=== PATIENT | male | born 1995 | race Asian ===

== ENCOUNTER 2019-05-07 14:19 | Emergency (ER) | payer SELFPAY ==
[2019-05-07 14:27] VITALS: BP 114/75; PULSE 120; RESP 18; TEMP 37; O2SAT 99; BMI 28.8
[2019-05-07 15:05] LABS: Influenza A - CEPHEID Flu A NEGATIVE (NEGATIVE); Influenza B - CEPHEID Flu B POSITIVE (NEGATIVE)
--- NOTE | 2019-05-07 15:45 | ED_ITS ---
HPI - Abdominal Pain <TONY Madrigal - Last Filed: 05/07/19 21:08> General Chief Complaint: Dizziness Stated Complaint: feeling icky last three days bloody stool today Time Seen by Provider: 05/07/19 14:51 Source: patient Mode of arrival: Ambulatory Limitations: no limitations History of Present Illness HPI narrative: The patient is a 24-year-old male nonsmoker who denies pertinent medical history presents with a chief complaint of fevers muscle aches and chills for the past 3-4 days. He is concerned that he might have the flu. He also complains of left-sided abdominal pain last night and bright red blood per rectum. He states that that happened this morning. He denies any sore throat or ear pain. He denies any nausea or vomiting. Related Data Allergies Allergy/AdvReac Type Severity Reaction Status Date / Time No Known Drug Allergies Allergy Verified 05/07/19 14:27 Review of Systems <LORENZO Madrigal - Last Filed: 05/07/19 21:08> Review of Systems Narrative: GENERAL: See HPI HEENT: Denies sinus pain, ear pain, sore throat, difficulty swallowing, dizziness. RESPIRATORY: Denies dyspnea, cough, wheezing, hemoptysis, sputum. CARDIOVASCULAR: Denies chest pain, palpitations, orthopnea, edema, GASTROINTESTINAL: See HPI : Denies dysuria, frequency, incontinence, hematuria, urinary retention. MUSCULOSKELETAL: denies weakness, joint pain, or bony pain SKIN: Denies rash, skin lesions, or other NEUROLOGIC: Denies weakness, headache, numbness, change in speech, confusion, se izures, incoordination. PSYCHIATRIC: No concerning psychosocial issues. 12 point review of systems is negative except for those stated above Patient History <TONY Madrigal - Last Filed: 05/07/19 21:08> Social History Smoking Status: Never smoker Smoking Status: Never smoker Substance Use Type: does not use Exam <TONY Madrigal - Last Filed: 05/07/19 21:08> Narrative Exam Narrative: GENERAL: This is a well-nourished, well-developed patient, in no acute distress HEAD: Atraumatic. Normocephalic. No temporal or scalp tenderness. EYES: Pupils equal round and reactive. Extraocular motions intact. No scleral icterus. No injection or drainage. ENT: Nose without bleeding, purulent drainage or septal hematoma. Throat without erythema, tonsillar hypertrophy or exudate. Uvula midline. Airway patent. Bilateral TMs pearly sneed. NECK: Trachea midline. No JVD or lymphadenopathy. Supple, nontender, no meningeal signs. CARDIOVASCULAR: Regular rate and rhythm without murmurs, gallops, or rubs. RESPIRATORY: Clear to auscultation. Breath sounds equal bilaterally. No wheezes, rales, or rhonchi. No cough. No increased respiratory effort. No accessory muscle use. GASTROINTESTINAL: Abdomen soft, non-tender, nondistended. No hepato- splenomegaly, or palpable masses. No guarding. rectal: Done with Ernesto CLEVELAND at bedside. Heme-positive stool. Possible hemorrhoid. No gross blood. EXTREMITIES: No clubbing, cyanosis, or edema. No joint tenderness, effusion, or edema noted. BACK: Nontender without deformity or crepitance. No flank tenderness. NEURO: AOx3. SKIN: No rash or erythema on visible skin Initial Vital Signs Initial Vital Signs: Vital Signs Temperature 98.6 F 05/07/19 14:27 Pulse Rate 120 H 05/07/19 14:27 Respiratory Rate 18 05/07/19 14:27 Blood Pressure 114/75 05/07/19 14:27 Pulse Oximetry 99 05/07/19 14:27 <Corinne Farnsworth MD - Last Filed: 05/08/19 17:45> Initial Vital Signs Initial Vital Signs: Vital Signs Temperature 98.6 F 05/07/19 14:27 Pulse Rate 120 H 05/07/19 14:27 Respiratory Rate 18 05/07/19 14:27 Blood Pressure 114/75 05/07/19 14:27 Pulse Oximetry 99 05/07/19 14:27 Procedures <TONY Madrigal - Last Filed: 05/07/19 21:08> Stool Hemoccult Procedural Steps Taken: stool placed in appropriate test area, developer placed on stool and control areas and controls appropriately positive and negative Hemoccult result: positive Additional Comments: Ernesto CLEVELAND at bedside Course <TONY Madrigal - Last Filed: 05/07/19 21:08> Orders Ordered: Discontinued Medications Sodium Chloride (Normal Saline 0.9%) 500 mls @ 1,000 mls/hr IV BOLUS ONE Stop: 05/07/19 15:38 Last Infusion: 05/07/19 16:30 Dose: 0 mls/hr Documented by: Admin: 05/07/19 16:00 Dose: 1,000 mls/hr Documented by: ANTWON Sodium Chloride (Normal Saline 0.9%) 1,000 mls @ 1,000 mls/hr IV BOLUS ONE Stop: 05/07/19 17:55 Last Infusion: 05/07/19 18:15 Dose: 0 mls/hr Documented by: Admin: 05/07/19 17:15 Dose: 1,000 mls/hr Documented by: ANTWON Vital Signs Vital signs: Vital Signs - 8 hr 05/07/19 14:27 05/07/19 16:32 05/07/19 17:33 Temperature 98.6 F Pulse Rate 120 H 109 H 95 H Respiratory Rate 18 18 18 Blood Pressure 114/75 Blood Pressure [Right Arm] 109/79 122/76 Pulse Oximetry 99 100 100 05/07/19 18:00 Temperature Pulse Rate 99 H Respiratory Rate 18 Blood Pressure Blood Pressure [Right Arm] 129/69 Pulse Oximetry 99 <Corinne Farnsworth MD - Last Filed: 05/08/19 17:45> Orders Ordered: Discontinued Medications Sodium Chloride (Normal Saline 0.9%) 500 mls @ 1,000 mls/hr IV BOLUS ONE Stop: 05/07/19 15:38 Last Infusion: 05/07/19 16:30 Dose: 0 mls/hr Documented by: Admin: 05/07/19 16:00 Dose: 1,000 mls/hr Documented by: ANTWON Sodium Chloride (Normal Saline 0.9%) 1,000 mls @ 1,000 mls/hr IV BOLUS ONE Stop: 05/07/19 17:55 Last Infusion: 05/07/19 18:15 Dose: 0 mls/hr Documented by: Admin: 05/07/19 17:15 Dose: 1,000 mls/hr Documented by: ANTWON Vital Signs Vital signs: Vital Signs - 8 hr 05/07/19 14:27 05/07/19 16:32 05/07/19 17:33 Temperature 98.6 F Pulse Rate 120 H 109 H 95 H Respiratory Rate 18 18 18 Blood Pressure 114/75 Blood Pressure [Right Arm] 109/79 122/76 Pulse Oximetry 99 100 100 05/07/19 18:00 Temperature Pulse Rate 99 H Respiratory Rate 18 Blood Pressure Blood Pressure [Right Arm] 129/69 Pulse Oximetry 99 MDM - Abdominal Pain <Christa Tapia, [employer] DES[employer]ER-BC - Last Filed: 05/07/19 21:08> Lab Data Result diagrams: 05/07/19 15:40 05/07/19 15:40 Labs: Lab Results 05/07/19 05/07/19 05/07/19 Range/Units 14:35 15:40 15:40 WBC (4.5-11.0) X10^3/uL RBC (4.5-5.9) X10^6/uL Hgb (13.5-17.5) g/dL Hct (41-53) % MCV (80-100) fL MCH (26-34) PG MCHC (30-36) % RDW (11.6-14.8) % Plt Count (150-400) X10^3/uL Neut % (Auto) (50-75) % Lymph % (Auto) (25-40) % [place] % (Auto) (3-14) % Eos % (Auto) (2-4) % Baso % (Auto) (0-2) % Neut # (Auto) (8420-2221) /uL Lymph # (Auto) (2593-8514) /uL [place] # (Auto) (0-900) /uL Eos # (Auto) (0-450) /uL Baso # (Auto) (0-100) /uL RBC Morphology Target Cells Sodium (137-145) mmol/L Potassium (3.4-5.1) mmol/L Chloride (98-107) mmol/L Carbon Dioxide (22-32) mmol/L BUN (9-20) mg/dL Creatinine (0.66-1.25) mg/dL Estimated GFR (>60) mL/min BUN/Creatinine Ratio (6-22) Glucose (70-100) mg/dL Calcium (8.4-10.2) mg/dL Total Bilirubin (0.2-1.3) mg/dL AST (17-59) IU/L ALT (<50) IU/L Alkaline Phosphatase (38-126) U/L Total Protein (6.3-8.2) g/dL Albumin (3.5-5.0) g/dL Globulin (1.7-4.1) g/dL Albumin/Globulin Ratio (1.0-2.8) Amylase Cancelled Lipase (23-300) U/L Influenza A (RT-PCR) Flu a negative (NEGATIVE) Influenza B (RT-PCR) Flu b positive H (NEGATIVE) Blood Type O Positive Antibody Screen Negative 05/07/19 05/07/19 Range/Units 15:40 15:40 WBC 6.7 (4.5-11.0) X10^3/uL RBC 6.50 H (4.5-5.9) X10^6/uL Hgb 13.5 (13.5-17.5) g/dL Hct 42.0 (41-53) % MCV 64.6 L (80-100) fL MCH 20.7 L (26-34) PG MCHC 32.1 (30-36) % RDW 15.1 H (11.6-14.8) % Plt Count 208 (150-400) X10^3/uL Neut % (Auto) 68.2 (50-75) % Lymph % (Auto) 15.5 L (25-40) % [place] % (Auto) 15.0 H (3-14) % Eos % (Auto) 0.9 L (2-4) % Baso % (Auto) 0.4 (0-2) % Neut # (Auto) 4600 (3570-6991) /uL Lymph # (Auto) 1000 L (5059-6601) /uL [place] # (Auto) 1000 H (0-900) /uL Eos # (Auto) 100 (0-450) /uL Baso # (Auto) 0 (0-100) /uL RBC Morphology See below Target Cells 1+ H Sodium 140 (137-145) mmol/L Potassium 3.9 (3.4-5.1) mmol/L Chloride 103 (98-107) mmol/L Carbon Dioxide 28 (22-32) mmol/L BUN 18 (9-20) mg/dL Creatinine 1.10 (0.66-1.25) mg/dL Estimated GFR > 60.0 (>60) mL/min BUN/Creatinine Ratio 16.4 (6-22) Glucose 99 (70-100) mg/dL Calcium 8.9 (8.4-10.2) mg/dL Total Bilirubin 0.4 (0.2-1.3) mg/dL AST 43 (17-59) IU/L ALT 38 (<50) IU/L Alkaline Phosphatase 56 (38-126) U/L Total Protein 7.6 (6.3-8.2) g/dL Albumin 4.3 (3.5-5.0) g/dL Globulin 3.3 (1.7-4.1) g/dL Albumin/Globulin Ratio 1.3 (1.0-2.8) Amylase 79 Lipase 66 (23-300) U/L Influenza A (RT-PCR) (NEGATIVE) Influenza B (RT-PCR) (NEGATIVE) Blood Type Antibody Screen MDM Narrative Medical decision making narrative: The patient is a 24-year-old male who presents with a chief complaint of bright red blood in the toilet and on toilet paper earlier today, as well as feeling as though he has the flu. He test positive for influenza B. Given his complains about possible rectal bleeding, I did do lab work which came back grossly normal. He is not anemic at this point time. Exam indicates a possible hemorrhoid, which correlates with his history o f constipation. I discussed at length staying hydrated high-fiber foods. Discussed that he is out of length for Tamiflu window and work note given. Discussed at length pushing fluids and rest, [id number] medications as needed and able. Encourage PCP follow-up in the next few days. Discussed coming back to the ER for any acute concerns such as chest pain, shortness of breath etcetera patient has no questions or concerns upon discharge and states understanding of return precautions and follow-up care. <Corinne Farnsworth MD - Last Filed: 05/08/19 17:45> Lab Data Labs: Lab Results 05/07/19 05/07/19 05/07/19 Range/Units 14:35 15:40 15:40 WBC (4.5-11.0) X10^3/uL RBC (4.5-5.9) X10^6/uL Hgb (13.5-17.5) g/dL Hct (41-53) % MCV (80-100) fL MCH (26-34) PG MCHC (30-36) % RDW (11.6-14.8) % Plt Count (150-400) X10^3/uL Neut % (Auto) (50-75) % Lymph % (Auto) (25-40) % [place] % (Auto) (3-14) % Eos % (Auto) (2-4) % Baso % (Auto) (0-2) % Neut # (Auto) (6898-4199) /uL Lymph # (Auto) (0982-3555) /uL [place] # (Auto) (0-900) /uL Eos # (Auto) (0-450) /uL Baso # (Auto) (0-100) /uL RBC Morphology Target Cells Sodium (137-145) mmol/L Potassium (3.4-5.1) mmol/L Chloride (98-107) mmol/L Carbon Dioxide (22-32) mmol/L BUN (9-20) mg/dL Creatinine (0.66-1.25) mg/dL Estimated GFR (>60) mL/min BUN/Creatinine Ratio (6-22) Glucose (70-100) mg/dL Calcium (8.4-10.2) mg/dL Total Bilirubin (0.2-1.3) mg/dL AST (17-59) IU/L ALT (<50) IU/L Alkaline Phosphatase (38-126) U/L Total Protein (6.3-8.2) g/dL Albumin (3.5-5.0) g/dL Globulin (1.7-4.1) g/dL Albumin/Globulin Ratio (1.0-2.8) Amylase Cancelled Lipase (23-300) U/L Influenza A (RT-PCR) Flu a negative (NEGATIVE) Influenza B (RT-PCR) Flu b positive H (NEGATIVE) Blood Type O Positive Antibody Screen Negative 05/07/19 05/07/19 Range/Units 15:40 15:40 WBC 6.7 (4.5-11.0) X10^3/uL RBC 6.50 H (4.5-5.9) X10^6/uL Hgb 13.5 (13.5-17.5) g/dL Hct 42.0 (41-53) % MCV 64.6 L (80-100) fL MCH 20.7 L (26-34) PG MCHC 32.1 (30-36) % RDW 15.1 H (11.6-14.8) % Plt Count 208 (150-400) X10^3/uL Neut % (Auto) 68.2 (50-75) % Lymph % (Auto) 15.5 L (25-40) % [place] % (Auto) 15.0 H (3-14) % Eos % (Auto) 0.9 L (2-4) % Baso % (Auto) 0.4 (0-2) % Neut # (Auto) 4600 (4070-2259) /uL Lymph # (Auto) 1000 L (9767-5354) /uL [place] # (Auto) 1000 H (0-900) /uL Eos # (Auto) 100 (0-450) /uL Baso # (Auto) 0 (0-100) /uL RBC Morphology See below Target Cells 1+ H Sodium 140 (137-145) mmol/L Potassium 3.9 (3.4-5.1) mmol/L Chloride 103 (98-107) mmol/L Carbon Dioxide 28 (22-32) mmol/L BUN 18 (9-20) mg/dL Creatinine 1.10 (0.66-1.25) mg/dL Estimated GFR > 60.0 (>60) mL/min BUN/Creatinine Ratio 16.4 (6-22) Glucose 99 (70-100) mg/dL Calcium 8.9 (8.4-10.2) mg/dL Total Bilirubin 0.4 (0.2-1.3) mg/dL AST 43 (17-59) IU/L ALT 38 (<50) IU/L Alkaline Phosphatase 56 (38-126) U/L Total Protein 7.6 (6.3-8.2) g/dL Albumin 4.3 (3.5-5.0) g/dL Globulin 3.3 (1.7-4.1) g/dL Albumin/Globulin Ratio 1.3 (1.0-2.8) Amylase 79 Lipase 66 (23-300) U/L Influenza A (RT-PCR) (NEGATIVE) Influenza B (RT-PCR) (NEGATIVE) Blood Type Antibody Screen Discharge Plan Departure Patient Disposition: Home Clinical Impression: Influenza B, BRBPR (bright red blood per rectum) Discharge Date/Time: 05/07/19 18:40 Instructions: Constipation (Alternative Therapy), DI for Constipation, DI for Influenza -- Adult, DI for Rectal Bleeding Activity Restrictions/Additional Instructions: Thank you for trusting us with your care today You tested positive for influenza B. Please rest and push fluids I've given you a work note. Please try to not become constipated or strain to have bowel movements, as this can increase the chance of rectal bleeding Please follow-up with primary care provider in the next few days Please come back to the emergency department for any acute concerns Stand Alone Forms: Work Release Note
[2019-05-07 15:55] LABS: Add Manual Diff / Slide Review NO; Basophils Absolute Auto 0 /uL (0-100); Basophils Percent Auto 0.4 % (0-2); Eosinophils Absolute Auto 100 /uL (0-450); Eosinophils Percent Auto 0.9 % (2-4); Hemoglobin 13.5 g/dL (13.5-17.5); Lymphocytes Absolute Auto 1000 /uL (1100-4500); Lymphocytes Percent Auto 15.5 % (25-40); Mean Corpuscular HGB Conc 32.1 % (30-36); Mean Corpuscular Hemoglobin 20.7 PG (26-34); Mean Corpuscular Volume 64.6 fL (80-100); Monocytes Absolute Auto 1000 /uL (0-900); Neutrophils Absolute Auto 4600 /uL (1500-7000); Neutrophils Percent Auto 68.2 % (50-75); Platelet Count 208 X10^3/uL (150-400); Red Cell Distribution Width 15.1 % (11.6-14.8); White Blood Cell Count 6.7 X10^3/uL (4.5-11.0)
[2019-05-07] MEDS: SODIUM CHLORIDE 0.9% 500 ML 1000 ML IV (16:00)
[2019-05-07 16:17] LABS: Alanine Aminotransferase 38 IU/L (<50); Albumin 4.3 g/dL (3.5-5.0); Albumin Globulin Ratio 1.3 (1.0-2.8); Alkaline Phosphatase 56 U/L (38-126); Amylase 79 U/L (30-110); Aspartate Aminotransferase 43 IU/L (17-59); BUN Creatinine Ratio 16.4 (6-22); Bilirubin Total 0.4 mg/dL (0.2-1.3); Blood Urea Nitrogen 18 mg/dL (9-20); Calcium 8.9 mg/dL (8.4-10.2); Carbon Dioxide 28 mmol/L (22-32); Chloride 103 mmol/L (98-107); Estimated Glomerular Filt Rate > 60.0 mL/min (>60); Globulin 3.3 g/dL (1.7-4.1); Glucose 99 mg/dL (70-100); HEMOLYSIS < 15 (0-50); Lipase 66 U/L (23-300); Potassium 3.9 mmol/L (3.4-5.1); Sodium 140 mmol/L (137-145); Total Protein 7.6 g/dL (6.3-8.2)
[2019-05-07 16:32] VITALS: BP 109/79; PULSE 109; RESP 18; O2SAT 100
[2019-05-07 16:47] LABS: Target Cells 1+
[2019-05-07] MEDS: SODIUM CHLORIDE 0.9% 1,000 ML 1000 ML IV (17:15)
[2019-05-07 17:33] VITALS: BP 122/76; PULSE 95; RESP 18; O2SAT 100
[2019-05-07 18:00] VITALS: BP 129/69; PULSE 99; RESP 18; O2SAT 99
== END 2019-05-07 18:40 | disposition home or self-care (01) ==
PROVIDERS: Emergency Medicine; Emergency Provider Nurse Practitioner Family
DX: J10.1 Influenza due to other identified influenza virus with other respiratory manifestations (principal); K62.5 Hemorrhage of anus and rectum
CPT/HCPCS: 36415; 80053; 82150; 83690; 85025; 86850; 86900; 86901; 87502; 99283; 99284

== ENCOUNTER → 2025-03-30 10:00 | Outpatient (CLI) | payer OTHER, SELFPAY | LOC: LAB 10:00 | PROVIDERS: Visit Provider Chiropractor | DX: J02.9 Acute pharyngitis, unspecified (principal) | CPT/HCPCS: 87070 ==